=== PATIENT | female | born 1965 | race Caucasian/White ===

== ENCOUNTER 2023-12-06 10:33 | Outpatient (CLI) | payer MEDICARE | END 2023-12-06 10:34 | disposition home or self-care (01) | LOC: CSHMAMMO 10:33 | PROVIDERS: ATTEND Nurse Practitioner Family | DX: Z12.31 Encounter for screening mammogram for malignant neoplasm of breast (principal); Z13.820 Encounter for screening for osteoporosis; Z78.0 Asymptomatic menopausal state; M81.0 Age-related osteoporosis without current pathological fracture; M85.89 Other specified disorders of bone density and structure, multiple sites; Z85.038 Personal history of other malignant neoplasm of large intestine | CPT/HCPCS: 77063; 77067; 77080 ==